=== PATIENT | male | born 1940 | race Caucasian/White ===

== ENCOUNTER 2024-05-08 17:47 | Emergency (ER) | payer MEDICARE, BC, OTHER, SELFPAY ==
[2024-05-08 18:34] VITALS: BP 107/66; PULSE 76; RESP 16; TEMP 35.8; O2SAT 95; BMI 41.2
--- NOTE | 2024-05-08 20:39 | CRLHL7_ITS ---
For Patients: As a result of the Century Cures Act, medical imaging exams and procedure reports are released immediately into your electronic medical record. You may view this report before your referring provider. If you have questions, please contact your health care provider. INDICATION: Mid abdominal pain. TECHNIQUE: CT abdomen and pelvis acquired with 129 cc of Isovue 370 IV contrast. COMPARISON: None. FINDINGS: Lower chest: 4 mm left lower lobe pulmonary nodule. Coronary artery calcification. Extensive fat within the distal paraesophageal posterior mediastinum. Liver: Unremarkable. Normal in size and attenuation. No suspicious masses. Gallbladder and bile ducts: Unremarkable. No stones or inflammation. No biliary dilatation. Pancreas: Fatty atrophy. No inflammation. Spleen: Unremarkable. Normal in size. No masses. Adrenal glands: Unremarkable. No nodules. Kidneys: Atrophic bilaterally. No suspicious masses, stones, or hydronephrosis. GI tract: Extensive diverticulosis without pericolonic inflammation. No obstruction. Several loops of prominent enhancing mucosa within the anterior mid abdomen involving the jejunum and proximal ileum (for example ). Normal appendix. Vasculature: Normal caliber abdominal aorta with severe atherosclerotic calcification. Mesenteric arteries are patent. Lymph nodes: No lymphadenopathy. Peritoneum/Abdominal Wall: Unremarkable. No free air or significant free fluid. Pelvis: Brachytherapy seeds within a normal-sized prostate. Bones: Left hip arthroplasty. Remote L2-3 osseous fusion. Multilevel spondylosis. Grade 2 anterolisthesis of L5 on S1 secondary to advanced facet arthrosis. No acute fracture. IMPRESSION: 1. Several loops of prominent enhancing mucosa within the anterior mid abdomen involving the jejunum and proximal ileum. This is nonspecific could represent enteritis in the correct clinical setting. 2. Extensive colonic diverticulosis without evidence of diverticulitis. 3. Multiple nonacute findings, as above. Please note that all CT scans at this facility use dose modulation, iterative reconstruction, and/or weight-based dosing when appropriate to reduce radiation dose to as low as reasonably achievable. Dictated by Frank Hernandez MD @ 05/08/2024 11:04:04 PM (Electronically Signed)
--- NOTE | 2024-05-08 20:41 | ED.GENADULT ---
HPI - General Adult General Chief complaint: Nausea/Vomiting Stated complaint: vomiting Time Seen by Provider: 05/08/24 20:35 History of Present Illness HPI narrative: Patient is a 84-year-old gentleman who had 3 servings of prunes today and now presents with nausea and vomiting and mid abdominal pain. He has no chest pain shortness a breath orthopnea no PND no change in his bowel or bladder. He has noticed that he has had decreased stool output today as well as decreased flatus. Patient had previously been in his usual state of health with no other major complaints. Patient has had no similar symptoms previously. Related Data Home Medications ?Medication ?Instructions ?Recorded ?Confirmed atenolol 100 mg-chlorthalidone 25 1 tab PO DAILY 05/08/24 05/08/24 mg tablet atorvastatin 20 mg tablet 20 mg PO DAILY 05/08/24 05/08/24 famotidine 40 mg tablet 40 mg PO QPM 05/08/24 05/08/24 glimepiride 4 mg tablet 4 mg PO BID 05/08/24 05/08/24 metformin 500 mg tablet,extended mg PO 05/08/24 release 24 hr tamsulosin 0.4 mg capsule 0.4 mg PO DAILY 05/08/24 05/08/24 Allergies Allergy/AdvReac Type Severity Reaction Status Date / Time No Known Drug Allergies Allergy Verified 05/08/24 22:33 Review of Systems Status of ROS: Reports: 10 or more systems reviewed and unremarkable except as noted in History and below Exam Narrative: Exam Narrative: EXAM GENERAL: Patient appears comfortable and well. EYES: No scleral icterus. ENT: Tympanic membranes and oropharynx normal. THYROID: no thyroid nodules or thyromegaly. LYMPH: No supraclavicular or cervical lymphadenopathy. SKIN: Visible skin seen during exam normal or with benign process only. EXT: No dependent lower extremity pedal edema. HEART: Regular rate and rhythm with no murmurs, rubs, or gallops. LUNGS: Clear to auscultation bilaterally with no crackles or wheezes. ABD: Mildly distended with tympanitic bowel sounds. No rebound masses or guarding. PSYCH: Good eye contact, speech is not pressured. Const: Vital Signs, click to edit/add: Vital Signs - 24 hr 05/08/24 18:34 Temperature 96.5 F L Pulse Rate [Pulse Oximeter] 76 Respiratory Rate 16 Blood Pressure [Ri ght Upper Arm] 107/66 Pulse Oximetry 95 Oxygen Delivery Me thod Room Air Course Course ED Course: CT of the abdomen pelvis ordered normal saline given Zofran given CBC comprehensive metabolic panel amylase UA pending. Vital Signs Vital signs: Initial Vital Signs Temperature 96.5 F L 05/08/24 18:34 Temperature Source Temporal Artery Scan 05/08/24 18:34 Pulse Rate 76 05/08/24 18:34 Respiratory Rate 16 05/08/24 18:34 Blood Pressure 107/66 05/08/24 18:34 Blood Pressure Mean 79 05/08/24 18:34 Blood Pressure Position Sitting 05/08/24 18:34 Pulse Oximetry 95 05/08/24 18:34 Oxygen Delivery Method Room Air 05/08/24 18:34 Vital Signs Temperature 96.5 F L 05/08/24 18:34 Pulse Rate 76 05/08/24 18:34 Respiratory Rate 16 05/08/24 18:34 Blood Pressure 107/66 05/08/24 18:34 Pulse Oximetry 95 05/08/24 18:34 Oxygen Delivery Method Room Air 05/08/24 18:34 Temperature 96.5 F L 05/08/24 18:34 Pulse Rate 76 05/08/24 18:34 Respiratory Rate 16 05/08/24 18:34 Blood Pressure 107/66 05/08/24 18:34 Pulse Oximetry 95 05/08/24 18:34 Oxygen Delivery Method Room Air 05/08/24 18:34 Medications Administered Medications: Discontinued Medications Generic Name Dose Route Start Last Admin Trade Name Freq PRN Reason Stop Dose Admin Sodium Chloride 1,000 mls @ 1,000 mls/hr 05/08/24 20:41 05/08/24 21:44 0.9 % Sodium Chloride 1000 Ml IV 05/08/24 21:40 Infused .Q1H JOCELINE Infusion Medical Decision Making [facility] Narrative Medical decision making narrative: Patient presents with mid abdominal pain. Does an elevated white blood cell count but his CT scan shows nonspecific enteritis consistent with some occluded versus food poisoning. He is given normal saline Zofran with resolution of his symptoms. His results were reviewed with him. I do not see any reason for any further evaluation. He does have elevated white blood cell count of bilirubin which are both probably chronic. At this time I did discharge him to home to advance his diet gently. He declines Zofran and will follow-up with his primary physician as needed differential diagnosis includes but not limited to appendicitis cholecystitis pancreatitis small-bowel obstruction enteritis ileus. Lab Data Labs: Lab Results 05/08/24 05/08/24 Range/Units 21:00 22:07 WBC 15.92 H (4.50-11.00) K/uL RBC 4.86 (4.30-5.90) m/uL Hgb 14.3 (13.5-17.5) gm/dL Hct 43.5 (37.0-53.0) % MCV 90 (80-100) fL MCH 29 (26-34) pg MCHC 33 (32-36) gm/dL RDW Coeff of Johnny 14.1 (11.5-15.5) % Plt Count 302 (140-440) K/uL Neut % (Auto) 89.7 H (42.0-72.0) % Lymph % (Auto) 2.5 L (20-44) % [place] % (Auto) 7.3 (0.0-11.0) % Eos % (Auto) 0.1 (0.0-7.0) % Baso % (Auto) 0.1 (0.0-3.0) % Neut # (Auto) 14.30 H (1.7-7.0) K/uL Lymph # (Auto) 0.40 L (0.90-2.90) K/uL [place] # (Auto) 1.20 H (0.00-0.90) K/UL Eos # (Auto) 0.00 (0.00-0.50) K/uL Baso # (Auto) 0.00 (0.00-0.30) K/uL Abs Immat Gran (auto) 0.00 (0.00-0.30) K/uL Imm/Tot Granulo (auto) 0.3 % Sodium 136 (135-149) mmol/L Potassium 4.0 (3.6-5.1) mmol/L Chloride 95 L (96-114) mmol/L Carbon Dioxide 29 (20-32) mmol/L Anion Gap 12 (7-15) mEq/L BUN 24 (7-30) mg/dL Creatinine 1.3 (0.5-1.5) mg/dL Estimated Creat Clear 39.55 Estimated GFR 54 ml/min Glucose 179 H (60-115) mg/dL Calcium 9.7 (8.4-10.6) mg/dL Total Bilirubin 1.8 H (0.1-1.5) mg/dL AST 34 (12-35) U/L ALT 29 (4-50) U/L Alkaline Phosphatase 75 (40-150) U/L Total Protein 7.6 (6.0-8.3) g/dL Albumin 4.6 (3.3-5.0) g/dL Amylase 49 (18-89) U/L Urine Color Yellow (Yellow) Urine Appearance Clear (Clear) Urine pH 7.0 (5.0-8.5) Ur Specific [place] 1.015 (1.000-1.030) Urine Protein Negative (Negative) Urine Glucose (UA) Negative (Negative) Urine Ketones Negative (Negative) Urine Blood Negative (Negative) Urine Nitrite Negative (Negative) Urine Bilirubin Negative (Negative) Urine Urobilinogen 0.2 (0.2-1.0) Ur Leukocyte Esterase Negative (Negative) Discharge Plan Discharge Clinical Impression: Gastroenteritis Patient Disposition: Home, Self-Care Condition: Stable Instructions: Gastroenteritis (ED) Activity Level: No Restrictions Discharge Diet: Regular Prescriptions: No Action atenolol-chlorthalidone 100-25 mg tablet 1 tab PO DAILY atorvastatin 20 mg tablet 20 mg PO DAILY famotidine 40 mg tablet 40 mg PO QPM tamsulosin 0.4 mg capsule 0.4 mg PO DAILY glimepiride 4 mg tablet 4 mg PO BID metformin 500 mg tablet extended release 24 hr PO Follow Up/Referrals: Provider,Not a Local [Primary Care Provider] - Stand Alone Forms: [employer] Info Instructions
[2024-05-08 21:09] LABS: Basophils Percent Auto 0.1 % (0.0-3.0); Eosinophils Percent Auto 0.1 % (0.0-7.0); Hematocrit 43.5 % (37.0-53.0); Hemoglobin* 14.3 gm/dL (13.5-17.5); Immature Granulocytes Pct Auto 0.3 %; Lymphocytes Percent Auto 2.5 % (20-44); Mean Corpuscular HGB Conc 33 gm/dL (32-36); Mean Corpuscular Hemoglobin 29 pg (26-34); Mean Corpuscular Volume 90 fL (80-100); Monocytes Percent Auto 7.3 % (0.0-11.0); Neutrophils Percent Auto 89.7 % (42.0-72.0); Platelet Count* 302 K/uL (140-440); RDW Coefficient of Variation % 14.1 % (11.5-15.5); Red Blood Count 4.86 m/uL (4.30-5.90); White Blood Count* 15.92 K/uL (4.50-11.00)
[2024-05-08 21:12] LABS: Slide Review Reflex No
[2024-05-08] MEDS: 0.9 % SODIUM CHLORIDE 1000 ml 1,000 ML IV (21:12)
[2024-05-08 21:24] LABS: Albumin* 4.6 g/dL (3.3-5.0); Chloride* 95 mmol/L (96-114); Sodium* 136 mmol/L (135-149)
[2024-05-08 21:27] LABS: Alanine Aminotransferase* 29 U/L (4-50); Alkaline Phosphatase* 75 U/L (40-150); Amylase* 49 U/L (18-89); Anion Gap 12 mEq/L (7-15); Aspartate Amino Transferase* 34 U/L (12-35); Bilirubin Total* 1.8 mg/dL (0.1-1.5); Blood Urea Nitrogen* 24 mg/dL (7-30); Carbon Dioxide* 29 mmol/L (20-32); Creatinine* 1.3 mg/dL (0.5-1.5); Est. Creatinine Clearance* 39.55; Estimated Glomerular Filt Rate 54 ml/min; Glucose* 179 mg/dL (60-115); Total Protein* 7.6 g/dL (6.0-8.3)
[2024-05-08 21:28] LABS: Calcium* 9.7 mg/dL (8.4-10.6)
--- NOTE | 2024-05-08 21:44 | PC.NURSE ---
patient to CT
[2024-05-08 22:16] LABS: Appearance Urine Clear (Clear); Bilirubin Urine Negative (Negative); Blood Urine Negative (Negative); Glucose Urine Negative (Negative); Ketones Urine Negative (Negative); Leukocyte Esterase Urine Negative (Negative); Nitrite Urine Negative (Negative); Protein Urine Negative (Negative); Specific Gravity Urine 1.015 (1.000-1.030); Urobilinogen Urine 0.2 (0.2-1.0)
[2024-05-08 22:42] LABS: Color Urine Yellow (Yellow)
[2024-05-08 22:56] VITALS: PULSE 83; O2SAT 96
[2024-05-08 23:00] VITALS: PULSE 78; O2SAT 95
[2024-05-08 23:02] VITALS: BP 114/75; PULSE 77; O2SAT 97
== END 2024-05-08 23:24 | disposition home or self-care (01) ==
PROVIDERS: Emergency Provider Internal Medicine
DX: K52.9 Noninfective gastroenteritis and colitis, unspecified (principal)
CPT/HCPCS: 36415; 74177; 80053; 81003; 82150; 85025; 99283; 99284; J7030; Q9967